=== PATIENT | male | born 1980 | race Two or more races ===

== ENCOUNTER 2017-02-23 18:31 | Emergency (ER) | payer SELFPAY ==
--- NOTE | 2017-02-23 19:50 | NUR ---
called in for triage, no answer.
--- NOTE | 2017-02-23 20:29 | NUR ---
called in for triage; no answer.
== END 2017-02-23 20:52 | disposition left against medical advice (07) ==
LOC: ER 18:33
DX: Z53.21 Procedure and treatment not carried out due to patient leaving prior to being seen by health care provider (principal)